=== PATIENT | female | born 1985 | race African-American/Black ===

== ENCOUNTER → 2020-05-19 | Outpatient (CLI) | payer MEDICAID | END | disposition home or self-care (01) | LOC: STAR 15:34 | PROVIDERS: ATTEND Urology | DX: Z20.828 Contact with and (suspected) exposure to other viral communicable diseases (principal) | CPT/HCPCS: 87635 ==

== ENCOUNTER 2020-05-24 10:30 | Day surgery (SDC) | payer MEDICAID ==
[~2020-05-24] VITALS: Ht 165.1 cm; Wt 100.6 kg
[2020-05-24 14:28] VITALS: BP 110/77
[2020-05-24] MEDS ORDERED: PLEASE ENTER ALLERGIES MC SCH (14:30)
[2020-05-24] MEDS ORDERED: LACTATED RINGERS 1,000 ML IV SCH (14:30)
[2020-05-24] MEDS ORDERED: CHLORHEXIDINE 15 ML UDC MM ONE (14:30)
[2020-05-24] MEDS ORDERED: PLEASE ENTER HEIGHT AND WEIGHT MC SCH (14:30)
[2020-05-24] MEDS ORDERED: ONDANSETRON 2MG/ML, 2ML ONE (15:16)
[2020-05-24] MEDS ORDERED: PROPOFOL 10 MG/ML, 20ML ONE (15:16)
[2020-05-24] MEDS ORDERED: SUGAMMADEX 200 MG/2 ML IVPush ONE (15:16)
[2020-05-24] MEDS ORDERED: CEFAZOLIN 1,000 MG ONE (15:16)
[2020-05-24] MEDS ORDERED: ROCURONIUM 10MG/ML,5ML ONE (15:16)
[2020-05-24] MEDS ORDERED: MIDAZOLAM 1 MG/ML, 2ML ONE (15:29)
[2020-05-24] MEDS ORDERED: FENTANYL PF 250 MCG/5ML ONE (15:29)
[2020-05-24] MEDS ORDERED: OMNIPAQUE 350 MG/ML, 50 ML BOTTLE IV ONE (16:02)
[2020-05-24] MEDS ORDERED: OXYcodone 5 MG/5 ML ORAL.SOL UDC ONE (16:19)
[2020-05-24] MEDS ORDERED: FENTANYL PF 100 MCG/2ML ONE (16:19)
[2020-05-24] MEDS: FENTANYL PF 100 MCG/2ML IV PRN ×2 (16:20→16:31)
[2020-05-24] MEDS ORDERED: KETOROLAC 30 MG/1 ML IV PRN (16:30)
[2020-05-24] MEDS ORDERED: OXYcodone 5 MG/5 ML ORAL.SOL UDC PO PRN (16:30)
[2020-05-24] MEDS ORDERED: OXYcodone/APAP 5/325MG TABLET PO PRN (16:30)
[2020-05-24] MEDS ORDERED: ACETAMINOPHEN 325 MG TABLET PO PRN (16:30)
[2020-05-24] MEDS ORDERED: PROMETHAZINE 25 MG/ML, 1ML IVPush PRN (16:30)
[2020-05-24] MEDS ORDERED: ONDANSETRON 2MG/ML, 2ML IVPush PRN (16:30)
[2020-05-24] MEDS ORDERED: ONDANSETRON 2MG/ML, 2ML IV PRN (16:30)
[2020-05-24] MEDS ORDERED: PHENAZOPYRIDINE 200 MG TABLET PO PRN (16:30)
[2020-05-24] MEDS ORDERED: DIPHENHYDRAMINE 50 MG/ML, 1ML IVPush PRN (16:30)
[2020-05-24] MEDS ORDERED: KETOROLAC 30 MG/1 ML IVPush PRN (16:30)
[2020-05-24] MEDS ORDERED: MEPERIDINE/PF 25MG/0.5ML IVPush PRN (16:30)
[2020-05-24] MEDS ORDERED: DIAZEPAM 5 MG/ML, 2ML IVPush PRN (16:30)
[2020-05-24] MEDS ORDERED: HYDROmorphone 1 MG/ML, 1ML INJ IVPush PRN (16:30)
[2020-05-24] MEDS ORDERED: DIAZEPAM 5 MG/ML, 2ML ONE (16:33)
[2020-05-24] MEDS ORDERED: KETOROLAC 30 MG/1 ML ONE (16:38)
== END 2020-05-24 16:30 | disposition home or self-care (01) ==
LOC: OUT 10:30 → MERGE 15:30 → OUT 16:30
PROVIDERS: ATTEND Urology
DX: N20.2 Calculus of kidney with calculus of ureter (principal); Q61.5 Medullary cystic kidney; Z79.1 Long term (current) use of non-steroidal anti-inflammatories (NSAID); Z79.891 Long term (current) use of opiate analgesic; Z79.899 Other long term (current) drug therapy; Z87.440 Personal history of urinary (tract) infections; Z87.442 Personal history of urinary calculi; Z87.891 Personal history of nicotine dependence
CPT/HCPCS: 52356; 74420; 81025; 82360; 88300; C2617; J0690; J1885; J2250; J2405; J2704; J3010; J3360; J7120; Q9967